=== PATIENT | female | born 1960 | race Caucasian/White ===

== ENCOUNTER → 2018-03-08 | Outpatient (CLI) | payer BC, OTHER | LOC: ULTRA 09:32 | DX: M79.661 Pain in right lower leg (principal); M79.89 Other specified soft tissue disorders; R60.9 Edema, unspecified ==

== ENCOUNTER → 2019-05-15 | Outpatient (CLI) | payer OTHER | LOC: CAT 15:21 | DX: Z13.6 Encounter for screening for cardiovascular disorders (principal); E78.00 Pure hypercholesterolemia, unspecified; I25.10 Atherosclerotic heart disease of native coronary artery without angina pectoris ==

== ENCOUNTER → 2021-09-04 | Outpatient (CLI) | payer OTHER | LOC: NUC 08:34 | PROVIDERS: ATTEND Nurse Practitioner | DX: M85.89 Other specified disorders of bone density and structure, multiple sites (principal) ==